=== PATIENT | female | born 1945 | race Hispanic/Latino ===

== ENCOUNTER 2022-06-18 09:05 | Day surgery (SDC) | payer MEDICARE ==
[2022-06-15 11:46] LABS: BASOPHILS % (AUTO) 0.8 % (0.0-5.0); EOSINOPHILS % (AUTO) 2.9 % (0.0-8.0); HEMATOCRIT 44.1 % (36-48); LYMPHOCYTES % (AUTO) 23.4 % (21.0-51.0); MEAN CORPUSCULAR HGB CONC 33.1 g/dL (32.0-36.0); MEAN CORPUSCULAR VOLUME 90.6 fL (79-99); MONOCYTES % (AUTO) 8.2 % (3.0-13.0); NEUTROPHILS % (AUTO) 64.4 % (40.0-77.0); PLATELET COUNT (AUTO) 239 K/uL (130-400); RED BLOOD CELL COUNT(AUTO) 4.87 MIL/uL (4.00-5.50); RED CELL DISTRIBUTION WIDTH 13.7 % (11.0-15.5); WHITE BLOOD COUNT (AUTO) 9.9 K/uL (4.8-10.8)
[2022-06-15 11:52] LABS: CREATININE 0.8 mg/dL (0.5-1.5); POTASSIUM 4.4 mmol/L (3.5-5.1)
[2022-06-15 13:07] VITALS: BP 191/89
[2022-06-18] VITALS (10 sets, daily range): BP systolic 124–160; BP diastolic 53–83
[~2022-06-18] VITALS: Ht 160 cm; Wt 81.6 kg
[~2022-06-18 09:05] MED LIST: 0.9%NACL 1000ML 1,000 ML IV SCH; AMLO-257 PO; ATORVASTATIN PO; LEVO100T12 PO; LISI20TA24 PO; OMEP40CA21 PO; TRAM50TA4 PO
[2022-06-18] MEDS ORDERED: LACTATED RINGERS 1000ML 1,000 ML IV ONE (12:30)
[2022-06-18] MEDS ORDERED: BUPIVACAINE/PF 0.5% 30ML VIAL ONE (13:22)
[2022-06-18] MEDS ORDERED: LIDOCAINE HCL 1% 20 ML VIAL ONE (13:22)
[2022-06-18] MEDS ORDERED: MIDAZOLAM HCL 1 MG/ML 5ML VIAL ONE (13:23)
[2022-06-18] MEDS ORDERED: ATOR40TA71 PO (13:33)
== END 2022-06-18 15:45 | disposition home or self-care (01) ==
LOC: DAH 09:05
PROVIDERS: ATTEND Surgery
DX: L72.3 Sebaceous cyst (principal); L72.0 Epidermal cyst; I10 Essential (primary) hypertension; E03.9 Hypothyroidism, unspecified; E78.00 Pure hypercholesterolemia, unspecified; K21.9 Gastro-esophageal reflux disease without esophagitis; M85.80 Other specified disorders of bone density and structure, unspecified site; Z98.890 Other specified postprocedural states; Z82.49 Family history of ischemic heart disease and other diseases of the circulatory system
CPT/HCPCS: 71045; 87426; 80048; 85025; 36415; 93005; 11402; A6260; A4663; J7030; A4452; J7120; J2250; J3490; A4930; A4215; A4223; A4222; A4221; 99155; 99157